=== PATIENT | male | born 1960 | race Caucasian/White ===

== ENCOUNTER → 2018-12-27 | Outpatient (CLI) | payer OTHER ==
[~2018-12-27] MED LIST: ASPIR 8181 MG PO; LANSOPRAZOLE30 MG PO; LOSARTAN POTAS100 MG PO
--- NOTE | 2018-12-27 10:04 | Diagnostic Imaging Report ---
EXAMINATION: SHOULDER LEFT COMPLETE, HUMERUS LEFT 2+VIEWS INDICATION: Left arm, shoulder pain COMPARISON: None FINDINGS: AP and lateral views of the humerus and AP views of the left shoulder in internal and external rotation were obtained. No acute fracture or dislocation. There is osteolysis of the distal left clavicle. Alignment is otherwise anatomic. The partially visualized left lung is clear. IMPRESSION: Osteolysis of the left distal clavicle. This can be seen in the setting of prior trauma and/or overuse (aggressive weight lifting) or less likely with systemic entities such as hyperparathyroidsim or rheumatoid arthritis. Signed by: Carlotta Kingslye MD on 12/27/2018 10:01 AM
== END ==
LOC: RAD 08:31
PROVIDERS: ATTEND Family Medicine
DX: M25.512 Pain in left shoulder (principal); M79.622 Pain in left upper arm

== ENCOUNTER → 2018-12-31 | Outpatient (CLI) | payer OTHER ==
--- NOTE | 2018-12-31 12:02 | Diagnostic Imaging Report ---
EXAM: Focused Soft Tissue Ultrasound Evaluation of left shoulder soft tissues INDICATION: ^LEFT SHOULDER / ARM PAIN COMPARISON: None TECHNIQUE: Peraza scale, color Doppler images of the left shoulder soft tissues in the area of clinical concern were obtained. FINDINGS/IMPRESSION: No focal mass or fluid collection. Signed by: Carlotta Kingsley MD on 12/31/2018 11:58 AM
== END ==
LOC: US 11:10
PROVIDERS: ATTEND Family Medicine
DX: M25.512 Pain in left shoulder (principal); M79.622 Pain in left upper arm
CPT/HCPCS: 76882

== ENCOUNTER → 2020-07-08 | Emergency (ER) | payer OTHER ==
[~2020-07-08] VITALS: Ht 185.4 cm; Wt 102.1 kg
[2020-07-08 11:20] LABS: BASOPHILS % 0.5 % (0.0-1.0); EOSINOPHILS # (AUTO) 0.2 (0.0-0.4); EOSINOPHILS % 2.3 % (0.0-6.0); HEMATOCRIT 44.9 % (38.2-49.6); HEMOGLOBIN 15.3 g/dL (14.0-18.0); LYMPHOCYTES # (AUTO) 1.9 (1.0-3.2); LYMPHOCYTES % 21.5 % (18.0-39.1); MEAN CORPUSCULAR HEMOGLOBIN 29.5 pg (28-32); MEAN CORPUSCULAR HGB CONC 34.1 g/dL (31-35); MEAN CORPUSCULAR VOLUME 86.7 fL (81-99); MONOCYTES % 11.4 % (4.4-11.3); NEUTROPHILS # (AUTO) 5.5 (2.1-6.9); NEUTROPHILS % 63.4 % (38.7-80.0); PLATELET COUNT 342 x10e3/uL (140-360); RED BLOOD COUNT 5.18 x10e6/uL (4.3-5.7); RED CELL DISTRIBUTION WIDTH 13.2 % (11.7-14.4)
[2020-07-08 11:43] LABS: ALANINE AMINOTRANSFERASE 36 IU/L (0-55); ALBUMIN 3.9 g/dL (3.5-5.0); ALBUMIN/GLOBULIN RATIO 1.1 (0.8-2.0); ALKALINE PHOSPHATASE 59 IU/L (40-150); ANION GAP 17.8 mmol/L (8-16); BLOOD UREA NITROGEN 16 mg/dL (7-26); BUN/CREATININE RATIO 15 (6-25); CALCIUM 8.1 mg/dL (8.4-10.2); CARBON DIOXIDE 21 mmol/L (22-29); CHLORIDE 101 mmol/L (98-107); CREATININE, SERUM 1.05 mg/dL (0.72-1.25); EST GLOMERULAR FILTRATION RATE > 60 ML/MIN (60-); GLUCOSE 188 mg/dL (74-118); POTASSIUM 3.8 mmol/L (3.5-5.1); SODIUM 136 mmol/L (136-145)
== END | disposition home or self-care (01) ==
LOC: ER 11:11
DX: R06.00 Dyspnea, unspecified (principal); E11.65 Type 2 diabetes mellitus with hyperglycemia; I10 Essential (primary) hypertension; E78.5 Hyperlipidemia, unspecified; K21.9 Gastro-esophageal reflux disease without esophagitis; Z87.19 Personal history of other diseases of the digestive system
CPT/HCPCS: 36415; 80053; 83880; 84484; 85025; 93005; 99283

== ENCOUNTER → 2020-07-08 | Outpatient (CLI) | payer OTHER | LOC: RAD 08:55 | PROVIDERS: ATTEND Family Medicine | DX: R06.00 Dyspnea, unspecified (principal) | CPT/HCPCS: 71046 ==